=== PATIENT | female | born 1995 | race Caucasian/White ===

== ENCOUNTER 2016-06-04 16:22 | Emergency (ER) | payer OTHER ==
[2016-06-04 16:44] VITALS: BMI 30.5
[2016-06-04 18:06] VITALS: BP 121/56; PULSE 85; TEMP 98.2
[2016-06-04 18:48] LABS: BASOPHIL 0.2 % (0-2.0); EOSINOPHIL 0.7 % (0-4.5); MCH 28.7 pg (25.7-33.7); MCHC 31.8 g/dl (32.0-36.0); MEAN CELL VOLUME 90.3 fl (80-96); MEAN PLT VOLUME 7.3 fl (7.5-11.1); PLATELET COUNT 291 K/MM3 (134-434); WHITE BLOOD COUNT 13.6 K/mm3 (4.0-10.0)
[2016-06-04 18:49] LABS: URINE APPEARANCE CLEAR; URINE BILIRUBIN NEGATIVE (NEGATIVE); URINE BLOOD NEGATIVE (NEGATIVE); URINE COLOR YELLOW; URINE GLUCOSE (UA) NEGATIVE (NEGATIVE); URINE KETONE NEGATIVE (NEGATIVE); URINE LEUK ESTERASE NEGATIVE (NEGATIVE); URINE NITRITE NEGATIVE (NEGATIVE); URINE PROTEIN NEGATIVE (NEGATIVE); URINE UROBILINOGEN NEGATIVE E.U./dl (0.2-1.0)
[2016-06-04 19:33] LABS: ALBUMIN 2.9 g/dl (3.4-5.0); ALK PHOS 83 U/L (45-117); ANION GAP 9 (8-16); BILIRUBIN,TOTAL 0.5 mg/dL (0.2-1.0); CALCIUM 8.4 mg/dL (8.5-10.1); CO2 23 mmol/L (21-32); CREATININE 0.5 mg/dL (0.55-1.02); GLUCOSE,RANDOM 102 mg/dL (74-106); SGOT/AST 13 U/L (15-37); SGPT/ALT 25 U/L (12-78)
[2016-06-04] MEDS ORDERED: DEXTROSE 5%-LACTATED RINGERS 1,000 ML IV ONE (20:00)
[2016-06-04] MEDS ORDERED: DEXTROSE 5%-LACTATED RINGERS 500 ML IV ONE ×2 (20:00→21:00)
== END 2016-06-04 23:20 | disposition home or self-care (01) ==
LOC: JER 16:22
DX: O26.892 Other specified pregnancy related conditions, second trimester (principal); R10.30 Lower abdominal pain, unspecified; Z3A.22 22 weeks gestation of pregnancy
CPT/HCPCS: 36415; 80053; 81003; 85025; 99281-25

== ENCOUNTER 2018-07-26 22:27 | Emergency (ER) | payer OTHER ==
[2018-07-26] MEDS ORDERED: diphenhydrAMINE HCL 50 MG CAPSULE PO ONE (22:30)
--- NOTE | 2018-07-26 22:30 | PDOC ---
History of Present Illness - History of Present Illness Initial Comments: 07/26/18 22:38 The patient is a 23 year old female who presents to the emergency department for evaluation of urticaria. The patient reports a 1 day history of worsening urticaria starting this morning. She describes the rashes initially developing on her shoulders and spreading to her extremities. Patient denies taking any medication for the urticaria. She notes increasing itchiness on body and extremities which prompted her to visit the emergency department for further evaluation. The patient denies eating new foods and use of new lotions or medications. She denies chest pain, swelling/itchiness of throat, shortness of breath, headache, and dizziness. Denies fevers, chills, nausea, and vomiting. PAST MEDICAL HISTORY: Asthma PAST SURGICAL HISTORY: no significant history FAMILY HISTORY: no pertinent history SOCIAL HISTORY: Pt lives with family and is employed. MEDICATIONS: reviewed ALLERGIES: As per nursing notes ROS General: No fevers or chills, no weakness, no weight loss HEENT: No change in vision. No sore throat,. No ear pain Cardiovascular: No chest pain or shortness of breath Respiratory:No cough, or wheezing. Gastrointestinal: no nausea, vomiting, diarrhea or constipation, No rectal bleeding Genitourinary: No dysuria, hematuria, or frequency Musculoskeletal: No joint or muscle pain or swelling Neurologic: No headache, vertigo, dizziness or loss of consciousness Psychiatric: nor depression Skin: (+)Rash on trunk and extremities. Endocrine: no increased thirst or abnormal weight change Allergic: no skin or latex allergy All other systems reviewed and normal PE GENERAL: The patient is awake, alert, and fully oriented, in no acute distress. HEAD: Normal with no signs of trauma. EYES: Pupils equal, round and reactive to light, extraocular movements intact, sclera anicteric, conjunctiva clear. LUNGS: Clear to auscultation bilaterally. No wheezing. EXTREMITIES: Normal range of motion, no edema. NEUROLOGICAL: Normal speech, normal gait. PSYCH: Normal mood, normal affect. SKIN: (+)Hives of trunk and extremities. Warm, Dry, normal turgor. <Grace Steele - Last Filed: 07/26/18 22:41> - General History Source: Patient Exam Limitations: No Limitations - History of Present Illness Initial Comments: A portion of this note was documented by scribe services under my direction. I have reviewed the details of the note, within reason, and agree with the documentation with the following case summary and management plan written by me. Patient treated in the ED. Nursing notes are reviewed and incorporated into the medical decision-making. Vital signs reviewed. Assessment and plan: This is a 23-year-old female who comes in complaining of itchy rash. Patient has hives. Otherwise no risk factors elicited for hives. Patient given Benadryl and prednisone with improvement of her symptoms. Patient discharged home with prescription to her pharmacy for a Medrol Dosepak and told to continue the Benadryl. 07/26/18 22:55 <Annia Gross I - Last Filed: 07/26/18 23:01> - General Chief Complaint: Allergic Reaction Stated Complaint: ALLERGIC REACTION Time Seen by Provider: 07/26/18 22:29 Past History <Grace Steele - Last Filed: 07/26/18 22:41> - Past Medical History Asthma: Yes - Surgical History Abdominal Surgery: No - Reproductive History (#): 2 Spontaneous : 1 - Immunization History Immunization Up to Date: Yes - Suicide/Smoking/Psychosocial Hx Smoking Status: No Smoking History: Never smoked Have you smoked in the past 12 months: No Number of Cigarettes Smoked Daily: 0 Hx Alcohol Use: No Drug/Substance Use Hx: No Substance Use Type: None Hx Substance Use Treatment: No <Annia Gross I - Last Filed: 07/26/18 23:01> - Past Medical History Allergies/Adverse Reactions: Allergies Allergy/AdvReac Type Severity Reaction Status Date / Time No Known Allergies Allergy Verified 06/04/16 16:32 Home Medications: Ambulatory Orders Methylprednisolone [Medrol Dose Sahil] 4 mg PO ASDIR #21 tablet 07/26/18 *Physical Exam - Vital Signs Last Vital Signs Temp Pulse Resp BP Pulse Ox 98.6 F 94 H 17 152/81 100 07/26/18 22:33 07/26/18 22:33 07/26/18 22:33 07/26/18 22:33 07/26/18 22:33 <Grace Steele - Last Filed: 07/26/18 22:41> Moderate Sedation - Procedure Monitoring Vital Signs: Procedure Monitoring Vital Signs Temperature 98.6 F 07/26/18 22:33 Pulse Rate 94 H 07/26/18 22:33 Respiratory Rate 17 07/26/18 22:33 Blood Pressure 152/81 07/26/18 22:33 O2 Sat by Pulse Oximetry (%) 100 07/26/18 22:33 <Grace Steele - Last Filed: 07/26/18 22:41> ED Treatment Course - Medications Given in the ED: ED Medications Discontinued Medications Generic Name Dose Route Start Last Admin Trade Name Shawn PRN Reason Stop Dose Admin Diphenhydramine HCl 50 mg 07/26/18 22:30 07/26/18 22:33 Benadryl - PO 07/26/18 22:31 50 mg ONCE ONE Administration Prednisone 40 mg 07/26/18 22:31 07/26/18 22:33 Deltasone - PO 07/26/18 22:32 40 mg ONCE ONE Administration <Grace Steele - Last Filed: 07/26/18 22:41> *DC/Admit/Observation/Transfer - Attestations Scribe Attestion: 07/26/18 22:39 Documentation prepared by Grace Steele, acting as nurses medical assistants phlebotomists for Annia Gross MD. <Grace Steele - Last Filed: 07/26/18 22:41> - Discharge Dispostion Decision to Admit order: No <Annia Gross I - Last Filed: 07/26/18 23:01> Diagnosis at time of Disposition: Hives - Discharge Dispostion Disposition: HOME Condition at time of disposition: Stable - Patient Instructions Additional Instructions: For the itching and rash take Benadryl one tablet as often as every 4-6 hours if needed. In addition to that I sent a prescription to your pharmacy for a longer acting metastatic son that you can take. Get that filled and take as directed by the instructions on the Dosepak.. If symptoms are continue to reoccur follow-up with an tile and marble setter for ALLERGY testing to see what is causing the hives Return to the emergency department immediately with ANY new, persistent or worsening symptoms. Continue any medications as previously prescribed by your physician. You should follow up with your primary doctor as soon as possible regarding today's emergency department visit. . Please make sure your doctor reviews the results of your emergency evaluation. Thank you for coming to the Emergency Department today for your care. It was a pleasure to see you today. Please note that your evaluation is INCOMPLETE until you follow-up with your doctor.
[2018-07-26] MEDS ORDERED: predniSONE 20 MG TABLET (UD) PO ONE (22:31)
[2018-07-26 22:38] VITALS: BP 152/81; PULSE 94; TEMP 98.6; BMI 36.3
[2018-07-26] MEDS ORDERED: DEXAMETHASONE SOD PHOSPHATE 10 MG/1 ML VIAL IM ONE (23:22)
[2018-07-26] MEDS ORDERED: DEXAMETHASONE SOD PHOSPHATE 10 MG/1 ML VIAL ONE (23:23)
== END 2018-07-27 00:44 | disposition home or self-care (01) ==
LOC: FER 22:27
PROC: 3E023GC Introduction of Other Therapeutic Substance into Muscle, Percutaneous Approach (ICD-10-PCS; principal; 2018-07-26)
DX: L50.9 Urticaria, unspecified (principal); L29.9 Pruritus, unspecified
CPT/HCPCS: 96372; 99282-25; J1100

== ENCOUNTER 2018-09-04 12:30 | Emergency (ER) | payer OTHER ==
[2018-09-04 12:52] VITALS: BP 114/73; PULSE 89; TEMP 99.6; BMI 37.8
--- NOTE | 2018-09-04 13:20 | PDOC ---
History of Present Illness - General Chief Complaint: Cold Symptoms Stated Complaint: COUGH Time Seen by Provider: 09/04/18 12:43 - History of Present Illness Initial Comments: 09/04/18 14:28 Chief complaint: Cough History of present illness: Patient complains of nasal congestion, cough productive of clear sputum for 2 days. Review of systems: Denies chest pain, shortness of breath, fever/chills, wheezing, chest tightness. Remainder systems reviewed and negative Past medical history: Asthmatic since childhood, no hospitalizations, and intubations, or steroids presently or in the past since childhood. Has a home nebulizer, but has run out of nebulizer solution. No other medical/surgical problems Social/family history reviewed and noncontributory Physical exam: Alert and oriented well-developed well-nourished no acute distress cheerful and cooperative. Afebrile, vital signs normal HEENT: Significant nasal congestion, postnasal drip, throat mildly injected without swelling mass or exudate. Ears clear. Neck supple without bruit mass or nodes Chest clear with full breath sounds bilaterally, no wheezes rales or rhonchi CV regular without murmur rub or gallop Abdomen benign Skin clear, no rash, adequate turgor and wet mucous membranes Neurological intact Impression: Asthmatic with URI symptoms, mild illness, no wheezing or chest tightness Plan: Symptomatic treatment, refill asthma medications for future use, rest and follow-up if symptoms persist or worsen. Fully ambulatory and in no distress at discharge. Past History - Past Medical History Allergies/Adverse Reactions: Allergies Allergy/AdvReac Type Severity Reaction Status Date / Time No Known Allergies Allergy Verified 09/04/18 12:31 Home Medications: Ambulatory Orders Albuterol 0.083% Nebulizer Sintia [Ventolin 0.083% Nebulizer Soln -] 1 amp NEB Q4H PRN #1 box 09/04/18 Azithromycin [Zithromax 250mg Tablets -] 250 mg PO UTDICT #6 tab 09/04/18 Guaifenesin AC [Robitussin-AC] 1 - 2 tsp PO Q4HWA PRN #120 ml MDD 8 09/04/18 Ibuprofen [Motrin -] 400 mg PO ONCE PRN 09/04/18 Pseudoephedrine HCl [Sudafed 12-Hour] 120 mg PO DAILY #10 tablet.er 09/04/18 Asthma: Yes COPD: No - Surgical History Abdominal Surgery: No - Reproductive History (#): 2 Spontaneous : 1 - Immunization History Immunization Up to Date: Yes - Suicide/Smoking/Psychosocial Hx Smoking Status: No Smoking History: Never smoked Have you smoked in the past 12 months: No Number of Cigarettes Smoked Daily: 0 Information on smoking cessation initiated: No Hx Alcohol Use: No Drug/Substance Use Hx: No Substance Use Type: None Hx Substance Use Treatment: No *Physical Exam - Vital Signs Last Vital Signs Temp Pulse Resp BP Pulse Ox 99.6 F 89 20 114/73 98 09/04/18 12:31 09/04/18 12:31 09/04/18 12:31 09/04/18 12:31 09/04/18 12:31 *DC/Admit/Observation/Transfer Diagnosis at time of Disposition: Viral upper respiratory tract infection with cough - Discharge Dispostion Disposition: HOME Condition at time of disposition: Stable Decision to Admit order: No - Prescriptions Prescriptions: Albuterol 0.083% Nebulizer Sintia [Ventolin 0.083% Nebulizer Soln -] 1 amp NEB Q4H PRN #1 box PRN Reason: Wheezing Azithromycin [Zithromax 250mg Tablets -] 250 mg PO UTDICT #6 tab Guaifenesin AC [Robitussin-AC] 1 - 2 tsp PO Q4HWA PRN #120 ml MDD 8 PRN Reason: Cough Pseudoephedrine HCl [Sudafed 12-Hour] 120 mg PO DAILY #10 tablet.er - Referrals - Patient Instructions Printed Discharge Instructions: DI for Viral Upper Respiratory Infection -- Adult - Post Discharge Activity Forms/Work/School Notes: Back to Work
== END 2018-09-04 13:47 | disposition home or self-care (01) ==
LOC: FER 12:30
DX: J06.9 Acute upper respiratory infection, unspecified (principal); B97.89 Other viral agents as the cause of diseases classified elsewhere; R05 Cough; J45.909 Unspecified asthma, uncomplicated
CPT/HCPCS: 99281-25

== ENCOUNTER 2019-06-07 12:42 | Emergency (ER) | payer OTHER ==
[2019-06-07 12:58] VITALS: BP 115/78; PULSE 68; TEMP 98.7; BMI 33.5
--- NOTE | 2019-06-07 13:38 | PDOC ---
History of Present Illness - General Chief Complaint: Pain, Acute Stated Complaint: PAIN TO RIGHT WRIST FOR 2 DAYS Time Seen by Provider: 06/07/19 13:22 - History of Present Illness Initial Comments: 06/07/19 13:33 Chief complaint: Right wrist pain HPI: Complains of pain in the right wrist for several days. Also mild swelling. No history of injury or other trauma, although she has a small child whom she often lifts and carries. Similar episode this past April, pain lasted a few days, resolved spontaneously. Review of systems: No pain or swelling of any other joints. No pain numbness tingling or limited motion of the hand or fingers. No constitutional signs such as fever/chills, body aches, myalgias, arthralgias, malaise, fatigue. Remainder of systems reviewed and negative Past medical history: Childbirth, otherwise healthy female, no active medical or surgical problems, no medication Social/family history reviewed and noncontributory Physical exam: Alert and oriented well-developed well-nourished no acute distress cheerful and cooperative Afebrile, vital signs normal Right upper extremity: There is mild diffuse swelling of the right wrist, compared to the left. There is no deformity, warmth, erythema. Tenderness is present over the dorsum of the wrist joint. No tenderness is elicited upon palpation of the distal radius or the anatomical snuffbox. Pulses are full. No distal sensory or motor deficits. Full extensor and flexor functions of the proximal and distal IP joints are present. X-ray: Negative Impression: Wrist sprain versus overuse syndrome. Plan: Immobilize, rest, anti-inflammatory, ice and elevation. Further evaluation 1 week by orthopedist if no improvement. Velcro wrist splint applied , emphasizing its use at night especially, and Motrin prescribed. Fully ambulatory in no distress upon discharge with family to follow-up as directed Past History - Past Medical History Allergies/Adverse Reactions: Allergies Allergy/AdvReac Type Severity Reaction Status Date / Time No Known Allergies Allergy Verified 06/07/19 12:43 Home Medications: Ambulatory Orders Ibuprofen 600 mg PO TID PRN #20 tablet 06/07/19 Asthma: Yes COPD: No - Surgical History Abdominal Surgery: No - Reproductive History (#): 2 Spontaneous : 1 - Immunization History Immunization Up to Date: Yes - Psycho Social/Smoking Cessation Hx Smoking Status: No Smoking History: Never smoked Have you smoked in the past 12 months: No Number of Cigarettes Smoked Daily: 0 Information on smoking cessation initiated: No Hx Alcohol Use: No Drug/Substance Use Hx: No Substance Use Type: None Hx Substance Use Treatment: No *Physical Exam - Vital Signs Last Vital Signs Temp Pulse Resp BP Pulse Ox 98.7 F 68 18 115/78 100 06/07/19 12:43 06/07/19 12:43 06/07/19 12:43 06/07/19 12:43 06/07/19 12:43 Medical Decision Making - Medical Decision Making 06/07/19 15:32 X-ray: Negative Volar splint applied. Patient more comfortable. Good pulses, capillary refill. No distal numbness tingling or pain. Rest ice and elevation. Ibuprofen. Follow-up orthopedist if no improvement in 1 week. Fully ambulatory and in no pain or other distress at discharge with family to follow-up as directed Discharge - Discharge Information Problems reviewed: Yes Clinical Impression/Diagnosis: Sprain of wrist Qualifiers: Encounter type: initial encounter Laterality: right Qualified Code(s): S63.501A - Unspecified sprain of right wrist, initial encounter Condition: Stable Disposition: HOME - Admission No - Additional Discharge Information Prescriptions: Ibuprofen 600 mg PO TID PRN #20 tablet PRN Reason: Pain - Follow up/Referral Referrals: Pankaj Crowe MD [Staff Physician] - 1 week - Patient Discharge Instructions Patient Printed Discharge Instructions: DI for Wrist Sprain Additional Instructions: Rest, ice, elevate, splint, especially at night. Ibuprofen. Follow-up with orthopedist if pain persists 1 week. - Post Discharge Activity
== END 2019-06-07 14:27 | disposition home or self-care (01) ==
LOC: FER 12:42
PROC: 2W3CX1Z Immobilization of Right Lower Arm using Splint (ICD-10-PCS; principal; 2019-06-07)
DX: S63.501A Unspecified sprain of right wrist, initial encounter (principal); X58.XXXA Exposure to other specified factors, initial encounter; Y93.89 Activity, other specified; Y92.89 Other specified places as the place of occurrence of the external cause; J45.909 Unspecified asthma, uncomplicated
CPT/HCPCS: 73110-TC-RT-FY; 99282-25

== ENCOUNTER 2020-11-06 12:38 | Emergency (ER) | payer OTHER ==
[2020-11-06] MEDS ORDERED: CEPHALEXIN MONOHYDRATE 500 MG CAPSULE (UD) PO ONE (13:07)
[2020-11-06] MEDS ORDERED: CEPHALEXIN MONOHYDRATE 500 MG CAPSULE (UD) ONE (13:09)
== END 2020-11-06 13:17 | disposition home or self-care (01) ==
LOC: FER 12:38
DX: L03.313 Cellulitis of chest wall (principal)
CPT/HCPCS: 99281-25

== ENCOUNTER 2021-06-03 16:13 | Emergency (ER) | payer OTHER ==
[2021-06-03 16:32] VITALS: BP 121/74; PULSE 61; TEMP 98.1; BMI 36.8
== END 2021-06-03 18:20 | disposition home or self-care (01) ==
LOC: FER 16:13
DX: B00.89 Other herpesviral infection (principal)
CPT/HCPCS: 99281-25

== ENCOUNTER 2021-07-31 12:05 | Emergency (ER) | payer OTHER ==
[2021-07-31 12:21] VITALS: BP 124/76; PULSE 70; TEMP 99.2; BMI 38.4
[2021-07-31] MEDS ORDERED: IBUPROFEN 600 MG TABLET (FP) PO ONE ×2 (13:08→13:12)
== END 2021-07-31 13:59 | disposition home or self-care (01) ==
LOC: FER 12:05
DX: L02.415 Cutaneous abscess of right lower limb (principal)
CPT/HCPCS: 99283-25

== ENCOUNTER 2023-03-17 16:56 | Emergency (ER) | payer OTHER ==
[2023-03-17] MEDS ORDERED: ALBUTEROL SO4 2.5/IPRATROPIUM 0.5 INH SOL 3 ML VIAL.NEB. NEB ONE ×2 (16:59→17:12)
[2023-03-17 17:12] VITALS: BP 125/76; PULSE 76; RESP 18; TEMP 99.1; BMI 38.6
== END 2023-03-17 18:40 | disposition home or self-care (01) ==
LOC: FER 16:56
PROC: 3E0F7GC Introduction of Other Therapeutic Substance into Respiratory Tract, Via Natural or Artificial Opening (ICD-10-PCS; principal; 2023-03-17)
DX: R05.9 Cough, unspecified (principal); R09.81 Nasal congestion; R06.02 Shortness of breath; J45.901 Unspecified asthma with (acute) exacerbation; J06.9 Acute upper respiratory infection, unspecified; B97.89 Other viral agents as the cause of diseases classified elsewhere; Z20.822 Contact with and (suspected) exposure to COVID-19
CPT/HCPCS: 0241U-QW; 99283-25

== ENCOUNTER 2024-02-06 14:05 | Emergency (ER) | payer OTHER ==
[2024-02-06] MEDS: IBUPROFEN 400 MG TABLET (FP) PO ONE (14:15)
[2024-02-06 14:16] VITALS: BP 159/105; PULSE 115; RESP 22; TEMP 98.8; BMI 39.4
[2024-02-06] MEDS ORDERED: IBUPROFEN 400 MG TABLET (FP) PO ONE (14:19)
[2024-02-06] MEDS ORDERED: LIDOCAINE 5% TOPICAL PATCH ONE ×2 (14:19→15:02)
[2024-02-06] MEDS: LIDOCAINE 5% TOPICAL PATCH TP ONE (14:32)
[2024-02-06] MEDS ORDERED: LIDOCAINE 5% TOPICAL PATCH TP ONE (15:01)
[2024-02-06] MEDS ORDERED: ACETAMINOPHEN 325 MG TABLET (FP) ONE (15:02)
[2024-02-06] MEDS: ACETAMINOPHEN 325 MG TABLET (FP) PO ONE (15:06)
[2024-02-06] MEDS ORDERED: LIDOCAINE PATCH REMOVAL MC SCH ×2 (22:00)
== END 2024-02-06 15:25 | disposition home or self-care (01) ==
LOC: FER 14:05
DX: M54.50 Low back pain, unspecified (principal)
CPT/HCPCS: 99283-25

== ENCOUNTER 2024-03-02 03:56 | Day surgery (SDC) | payer OTHER ==
[2024-03-01 11:54] VITALS: BMI 39.4
[2024-03-02] MEDS: DEXAMETHASONE SOD PHOSPHATE 10 MG/1 ML VIAL IM ONE (13:12)
[2024-03-02] MEDS: LIDOCAINE HCL 1% PRESERVATIVE FREE - 30ML VIAL IJ ONE (13:12)
[2024-03-02] MEDS: IOHEXOL 180 MG/1 ML ML IJ ONE (13:13)
[2024-03-02] MEDS ORDERED: ACETAMINOPHEN 500 MG TABLET (FP) ONE (13:28)
[2024-03-02] MEDS: ACETAMINOPHEN 500 MG TABLET (FP) PO PRN (13:29)
[2024-03-02 13:34] VITALS: BP 132/70; PULSE 68; RESP 20; TEMP 97.4
== END 2024-03-02 13:59 | disposition home or self-care (01) ==
LOC: JASU-SURG 03:56
PROVIDERS: ATTEND Pain Medicine Pain Medicine
PROC: 3E0R3BZ Introduction of Anesthetic Agent into Spinal Canal, Percutaneous Approach (ICD-10-PCS; 2024-03-02)
PROC: 3E0R33Z Introduction of Anti-inflammatory into Spinal Canal, Percutaneous Approach (ICD-10-PCS; principal; 2024-03-02 13:00)
DX: M54.16 Radiculopathy, lumbar region (principal)
CPT/HCPCS: 76000-TC-FY; 81025; J1100

== ENCOUNTER 2024-05-04 04:14 | Day surgery (SDC) | payer OTHER ==
[2024-05-03 13:02] VITALS: BMI 38.6
[2024-05-04] MEDS ORDERED: LIDOCAINE HCL/PF 1% SDV 5ML VIAL ONE (07:25)
[2024-05-04] MEDS ORDERED: DEXAMETHASONE SOD PHOSPHATE 10 MG/1 ML VIAL ONE (07:26)
[2024-05-04 15:43] VITALS: RESP 18
[2024-05-04 16:24] VITALS: BP 121/70; PULSE 69; TEMP 97.6
[2024-05-04] MEDS ORDERED: ACETAMINOPHEN 500 MG TABLET (FP) PO PRN (18:20)
== END 2024-05-04 16:05 | disposition home or self-care (01) ==
LOC: JASU-SURG 04:14
PROVIDERS: ATTEND Pain Medicine Pain Medicine
PROC: 3E0R3BZ Introduction of Anesthetic Agent into Spinal Canal, Percutaneous Approach (ICD-10-PCS; 2024-05-04)
PROC: 3E0R33Z Introduction of Anti-inflammatory into Spinal Canal, Percutaneous Approach (ICD-10-PCS; principal; 2024-05-04 14:15)
DX: M54.16 Radiculopathy, lumbar region (principal)
CPT/HCPCS: 76000-TC-FY; J1100